=== PATIENT | female | born 1990 | race Caucasian/White ===

== ENCOUNTER → 2021-02-13 12:00 | Outpatient (BNVA) | payer MEDICARE, MEDICAID, SELFPAY | PROVIDERS: PCP Internal Medicine; Visit Provider Advanced Practice Midwife | DX: Z13.89 Encounter for screening for other disorder (principal) | CPT/HCPCS: Q3014 ==

== ENCOUNTER → 2021-07-24 09:25 | Outpatient (BNVA) | payer MEDICARE, MEDICAID, SELFPAY | PROVIDERS: PCP Internal Medicine; Visit Provider Advanced Practice Midwife | DX: Z30.41 Encounter for surveillance of contraceptive pills (principal) | CPT/HCPCS: 99212 ==

== ENCOUNTER 2021-11-18 13:57 | Outpatient (REF) | payer MEDICARE, MEDICAID, SELFPAY ==
[2021-11-18 16:20] LABS: Syphilis Screen Nonreactive (Nonreactive)
[2021-11-19 02:19] LABS: CT PCR NOT DETECTED (Not Detect.); NG PCR NOT DETECTED (Not Detect.)
[2021-11-19 07:48] LABS: HBc Num1 0.07 S/CO (0.00-0.79); HIV AB/AG Nonreactive (Nonreactive); HIV Num 1 0.19 S/CO (0.00-0.99); Hepatitis B Core Antibody Nonreactive (Nonreactive); ~HepC Num1 0.13 S/CO (0.00-0.79); ~Hepatitis C Antibody Nonreactive (Nonreactive)
[2021-11-19 09:04] LABS: BV Int Neg Control Negative (Negative); BV Int Pos Control Positive (Positive)
== END 2021-11-18 13:58 | disposition home or self-care (01) ==
LOC: HO.LAB 13:57
PROVIDERS: Visit Provider Advanced Practice Midwife
DX: Z01.419 Encounter for gynecological examination (general) (routine) without abnormal findings (principal); Z11.4 Encounter for screening for human immunodeficiency virus [HIV]; Z20.2 Contact with and (suspected) exposure to infections with a predominantly sexual mode of transmission
CPT/HCPCS: 36415; 86704; 86780; 86803; 87389; 87480; 87491; 87510; 87591; 87660; 88142; 99212

== ENCOUNTER 2025-01-02 14:07 | Outpatient (AMB) | payer OTHER, SELFPAY ==
--- NOTE | 2025-01-02 14:10 | AM.OFFWIN_ITS ---
Intake Vital Signs 01/02/25 14:11 Height 5 ft BMI Reason not done Patient refused/unable BP 122/80 Blood Pressure Location Lt brachial Position Sitting Pulse 73 Pulse Source Pulse Oximeter Temp 98.8 F Temp Source Oral Pulse Oximetry (%) 98 Oxygen Delivery Method Room Air Intake Visit Reasons: EP-asthma, sob Patient Tobacco Use Status: Never used Tobacco Allergies shrimp Allergy (Unknown, Verified 01/02/25 14:12) itching SEAFOOD Allergy (Unknown, Uncoded 11/18/22 10:09) SWEELING Do you need a note to return to daycare/school/sports/work: Yes HPI HPI Comments History of Present Illness Details History - The patient is a 34-year-old female pr esenting with exacerbation of asthma symptoms. - The patient has been having a dry coug h and congestion. - The patient experiences asthma exacerb ations typically during the winter season, with the current episode lasting for the past three to four days. - Symptoms include coughing, chest pain, and dyspnea, with no productive cough. - The patient uses a nebulizer at home a s inhalers are ineffective for her. - The patient reports frequent allergies . - She denies fever, chills, CORREIA, sore thr oat, abd pain, n/v/d. - She has no sick contacts or recent tra walt. Physical Exam General: Cooperative, healthy appearing, comfortable and no acute distress Orientation/consciousness: Patient oriented x3 Limitations: No limitations Head: Normal to inspection Ears: Hearing grossly normal bilaterally, external ears normal and TM's normal bilaterally Nose: Normal external nose present, normal nares present, and no nasal discharge present. Face and sinus: Sinuses nontender to palpation. Mouth: Normal oral and palatal mucosa present and moist mucous membranes noted. Throat: Tonsils normal. Uvula is midline. Posterior oropharynx with erythema and no exudates. Eyes: Appearance normal, both eyes and all related structures Neck: Normal visual inspection, full ROM. No lymphadenopathy noted. Respiratory: Clear to auscultation bilaterally. Normal respiratory effort, able to speak in complete sentences. No respiratory distress, not tachypneic, no tripod positioning and no use of accessory muscles. Cardiovascular: Regular rate and rhythm. Normal S1 and S2 Skin: No rashes or lesions noted Patient was informed and verbally consented to the use of an ambient scribe for clinic note documentation during this visit. [facility] Medical History (Updated 11/18/22 @ 10:09 by Naa Loera) Depression Surgical History (Updated 11/18/22 @ 10:09 by Naa Loera) History of section Family History (System 11/18/22 @ 10:09 by Naa Loera) Father No problems noted. Mother HTN (hypertension) Son No problems noted. Daughter No problems noted. Social History (System 11/18/22 @ 10:09 by Naa Loera) Alcohol intake: never Patient Tobacco Use Status: Never used Tobacco Sexual orientation: Straight/Heterosexual Gender identity: Female Review of Systems Const All systems reviewed & are unremarkable except as noted in HPI and below Physical Exam Vital Signs: Last Vital Signs Temp 98.8 F 01/02/25 14:11 Pulse 73 01/02/25 14:11 BP 122/80 01/02/25 14:11 Pulse Ox 98 01/02/25 14:11 Oxygen Delivery Method Room Air 01/02/25 14:11 Assessment & Plan Assessment & Plan (1) Cough: Code(s): R05.9 - Cough, unspecified Qualifiers: Cough type: acute Qualified Code(s): R05.1 - Acute cough Plan Most likely asthma exacerbation vs viral illness vs URI vs covid vs RSV vs flu plan - Prescribed albuterol solution for nebulizer use. - Prescribed prednisone to manage inflammation. - Conducted a respiratory panel to identify potential viral infections. - Prescribed cough medicine for symptomatic relief. - Prescribed an antihistamine decongestant for allergy management. - Advised to follow up if no better - will call with results Orders: Orders Resp Pathogen Panel - [facility] Today J06.9 - Acute upper respiratory infection, unspecified Medications: New albuterol sulfate 1.25 mg (3 mL) inhalation Q4-6H PRN 75 mL 0RF Shortness Of Breath Or Wheezing cetirizine-pseudoephedrine 5-120 mg ER 1 tab PO BID 14 tabs 0RF 7 days benzonatate 100 mg PO bid-tid PRN 21 caps 0RF Cough 7 days prednisone 40 mg (2 x 20 mg) PO DAILY 10 tabs 0RF 5 days Discontinued desogestrel-ethinyl estradiol 0.15-0.03 mg (Apri) Discontinued Reason: Patient Completed Course 1 tab PO DAILY 28 tabs 11RF metronidazole Take with food, Avoid alcohol and vinegar products Discontinued Reason: Patient Completed Course 500 mg PO BID 7 days 14 tabs 0RF Coding Level of Care Code Est Pt Level 3 (21676) Diagnoses Acute cough R05.1 Cough type: acute
[2025-01-02 14:11] VITALS: BP 122/80; PULSE 73; TEMP 37.1; O2SAT 98
== END 2025-01-02 14:29 | disposition home or self-care (01) ==
PROVIDERS: PCP Internal Medicine; Visit Provider Physician Assistant Medical
DX: R05.1 Acute cough (principal)

== ENCOUNTER 2025-01-02 14:07 | Outpatient (REF) | payer OTHER, SELFPAY ==
[2025-01-03 09:04] LABS: Chlamydia pneumoniae PCR Not Detected (Not Detect.)
[2025-01-03 09:40] LABS: Influenza A H1 PCR Not Detected (Not Detect.); Influenza A H1-2009 PCR Not Detected (Not Detect.); Influenza A H3 PCR Not Detected (Not Detect.); SARS-CoV-2 PCR Not Detected (Not Detect.)
== END 2025-01-02 14:08 | disposition home or self-care (01) ==
LOC: HO.LNP 14:07
PROVIDERS: PCP Internal Medicine; Visit Provider Physician Assistant Medical
DX: R05.1 Acute cough (principal); J06.9 Acute upper respiratory infection, unspecified; R06.02 Shortness of breath
CPT/HCPCS: 87633; 99212